=== PATIENT | female | born 1985 | race African-American/Black ===

== ENCOUNTER → 2025-01-25 | Outpatient (CLI) | payer OTHER | LOC: M CARPUL 08:52 | PROVIDERS: ATTEND Internal Medicine | DX: R01.1 Cardiac murmur, unspecified (principal) ==

== ENCOUNTER 2025-02-28 06:26 | Day surgery (SDC) | payer OTHER ==
[~2025-02-28] VITALS: Ht 162.6 cm; Wt 96.6 kg
[~2025-02-28 06:26] MED LIST: AMLO1TAB25 PO; HYDR-3490 PO; LABE100T6 PO; NORE5TAB PO; PRENTAB9 PO
[2025-02-28] MEDS ORDERED: dexAMETHasone 4 MG/ML 1 ML VIAL As Ordered ONE (06:48)
[2025-02-28] MEDS ORDERED: ONDANSETRON 4MG/2ML VIAL As Ordered ONE (06:48)
[2025-02-28] MEDS ORDERED: LIDOCAINE 2% 100 MG/5 ML SDV (FOR ANES.) As Ordered ONE (06:48)
[2025-02-28] MEDS ORDERED: KETOROLAC 30 MG/ML 1 ML VIAL As Ordered ONE (06:48)
[2025-02-28] MEDS ORDERED: MIDAZOLAM INJ 2 MG/2 ML VIAL As Ordered ONE (06:52)
[2025-02-28] MEDS: ACETAMINOPHEN 500 MG TAB PO ONE (07:00)
[2025-02-28] MEDS: SCOPOLAMINE 1MG TRANSDERMAL PATCH TOP ONE (07:00)
[2025-02-28] MEDS: LIDOCAINE 1% SDV 30 ML VIAL As Ordered ONE (07:10)
[2025-02-28] MEDS: SILVER NITRATE APPLICATOR (1 = QTY 10) As Ordered ONE (08:12)
[2025-02-28] MEDS ORDERED: ONDANSETRON 4MG/2ML VIAL IV PRN (08:25)
[2025-02-28] MEDS ORDERED: HYDROMORPHONE HCL 0.5 MG/0.5 ML SYRINGE IV PRN (08:25)
[2025-02-28] MEDS ORDERED: LR 1,000 ML IV SCH (08:25)
[2025-02-28 10:55] VITALS: BP 112/68; TEMP 97.4; O2SAT 99
== END 2025-02-28 11:10 | disposition home or self-care (01) ==
LOC: M SDC 06:26
PROVIDERS: ATTEND General Practice
DX: D25.0 Submucous leiomyoma of uterus (principal); N93.9 Abnormal uterine and vaginal bleeding, unspecified; I10 Essential (primary) hypertension; Z79.899 Other long term (current) drug therapy; Z79.3 Long term (current) use of hormonal contraceptives
CPT/HCPCS: 36415; 58561; 81025; 86850; 86900; 86901; 88305; J1100; J1885; J2250; J2405; J3010